=== PATIENT | female | born 1950 | race Caucasian/White ===

== ENCOUNTER 2024-11-16 13:53 | Outpatient (AMB) | payer MEDICARE, SELFPAY ==
--- OUTSIDE RECORDS SUMMARY | 2024-11-16 15:10 | XMS_ITS | Clinical Summary ---
Author Organization [facility] [address] [place] [address] Care Team Providers Care Claims Counsel Name Role Phone Unavailable Primary Care Provider Unavailabl e Medications valsartan (DIOVAN) 160 mg tablet Take 1 tablet (160 mg total) by mouth daily. 3 Active tolterodine LA (DETROL LA) 4 mg 24 hr capsule Take 1 capsule (4 mg total) by mouth daily. 3 Active sulfamethoxazo le-trimethopri m (BACTRIM DS;CO-TRIMOXAZ OLE DS) 800-160 mg per tablet Take 1 tablet by mouth every 12 (twelve) hours. 3 Active semaglutide (OZEMPIC) 0.25 mg or 0.5 mg (2 mg/3 mL) pen injector Inject 0.5 mg under the skin. 3 Active omeprazole (PRILOSEC) 40 mg capsule Take 1 capsule (40 mg total) by mouth daily. 3 Active nitrofurantoin (MACRODANTIN) 50 mg capsule Take 1 capsule (50 mg total) by mouth daily. 3 Active metoprolol tartrate (LOPRESSOR) 100 mg Immediate Release tablet Take 1 tablet (100 mg total) by mouth 2 (two) times daily. Active ipratropium (ATROVENT) 21 mcg (0.03 %) nasal spray USE 1 SPRAY INTO EACH NOSTRIL TWICE A DAY 3 Active insulin lispro (HUMALOG) 200 unit/mL (3 mL) pen Inject under the skin. Active HUMALOG KWIKPEN INSULIN 100 unit/mL pen INJECT 4-6 UNITS SUBCUTANEOUSLY 2-3 TIMES DAILY BEFORE MEALS 3 Active DENTAGEL 1.1 % dental gel APPLY PEA SIZED AMOUNT TO TOOTHBRUSH&BRUSH FOR 2 MINS.SPIT OUT.DO THIS ONCE DAILY*NOT COVERED* 3 Active folic acid 0.8 mg Cap folic acid Active insulin glargine (LANTUS) 100 unit/mL vial Inject 14-24 Units under the skin. Active fluconazole (DIFLUCAN) 150 mg tablet TAKE 1 TABLET BY MOUTH EVERY 72 HOURS 3 Active flash glucose (FREESTYLE ALE 2 SENSOR) sensor kit 1 each by Other route. 3 Active ferrous sulfate (FEOSOL) 325 mg (65 mg iron) tablet Take 1 tablet (325 mg total) by mouth daily with breakfast. Active cyanocobalamin 1000 MCG tablet Take 1 tablet (1,000 mcg total) by mouth daily. 3 Active cholecalcifero l, vitamin D3, 25 mcg (1,000 unit) capsule Take 1 tablet by mouth daily. 2 Active chlorthalidone (HYGROTEN) 25 mg tablet Take 1 tablet (25 mg total) by mouth daily. 3 Active atorvastatin (LIPITOR) 40 mg tablet Take 1 tablet (40 mg total) by mouth daily. Active acetaminophen (TYLENOL) 325 mg tablet Take 2 tablets (650 mg total) by mouth. Active Social History Tobacco Use Types Packs/Day Years Used Date Smoking Tobacco: Never Assessed Comments Unknown Sex and Gender Information Value Date Recorded Sex Assigned at Not on file Legal Sex Female 4:11 PM EDT Gender Identity Not on file Sexual Orientation Not on file Last Filed Vital Signs Vital Sign Reading Time Taken Comments Blood Pressure 118/80 11/04/2022 4:43 PM EDT Pulse 100 11/04/2022 4:43 PM EDT Temperature 36.5 C (97.7 F) 11/04/2022 4:43 PM EDT Respiratory Rate - - Oxygen Saturation 99% 11/04/2022 4:43 PM EDT Inhaled Oxygen Concentration - - Weight 104.3 kg (230 lb) 11/04/2022 4:43 PM EDT Height 167.6 cm (5' 6 ) 11/04/2022 4:43 PM EDT Body Mass Index 37.12 11/04/2022 4:43 PM EDT Plan of Treatment Health Maintenance Due Date Last Done Comments HIV screening 09/06/1963 Hepatitis C screening 1968 Prediabetes Surveillance 1968 Tetanus adult (Td q 10,TDAP once) 1970 Breast cancer screening 1990 Lipid disorder screening 1990 Colon cancer screening, Colonoscopy 09/06/1995 Diabetes screening 09/06/1995 Pneumococcal Vaccine (50+ years) (1 of 1 - PCV) 2000 Shingles vaccine (Shingrix) (1 of 2 - Shingrix (RZV) 2 Dose Standard Series) 2000 Osteoporosis screening (bone density) 09/06/2015 Covid-19 vaccine series (2023- season) 2023 06/20/2020, 05/23/2020 Influenza vaccine 11/29/2024 01/12/2021, 01/04/2020, 01/14/2019 RSV Immunization (1 - 1-dose 75+ series) 2025 Cervical cancer screening Discontinued Meningococcal Vaccine Aged Out No denise farooq eligible based on patient's age to complete this topic Insurance [employer] , [address] [id number] [employer]
--- OUTSIDE RECORDS SUMMARY | 2024-11-16 15:10 | XMS_ITS | Encounter Summary ---
Author Organization [facility], Address [address] [place] [address] Phone Care Team Providers Care Raw Juice Weigher Name Role Phone Ileana Hubbard MD Primary Care Provider + [phone] Encounter Details Date Type Department Care Team (Late st Contact Info) Description 07/16/2021 Documentation Only [facility] [place] [address] [place] [address] Claudine Delacruz [address] [place] [id number] Social History Tobacco Use Types Packs/Day Years Used Date Smoking Tobacco: Former Cigarettes Alcohol Use Standard Drinks/Week Comments Yes 0 (1 standard drink = 0.6 oz pure alcohol) Alcoholic Drinks/day: Occasional social drink Comments Unknown Sex and Gender Information Value Date Recorded Sex Assigned at Not on file Legal Sex Female 4:47 PM EST Gender Identity Not on file Sexual Orientation Not on file documented as of this encounter Plan of Treatment Upcoming Encounters Date Type Department Care Team (Late st Contact Info) Description 12/07/2024 1:40 PM EDT Office Visit [facility] [place] [address] [place] [address] Alfredito Davis MD [address] [place] [address] documented as of this encounter Visit Diagnoses Not on filedocumented in this encounter Care Teams Raw Juice Weigher Relationship Specialty Start Date End Date Ileana Hubbard MD [address] [place] [address] PCP - General Internal Medicine 05/12/20 documented as of this encounter
--- OUTSIDE RECORDS SUMMARY | 2024-11-16 15:10 | XMS_ITS | Clinical Summary ---
Author Organization [facility] Address [address] [place] [id number] Phone Care Team Providers Care Paring Machine Operator Name Role Phone Ileana Hubbard MD Primary Care Provide r Alfredito Davis MD Unavailable [phone] Allergies Active Allergy Reactions Criticality Noted Date Comments Gadolinium-Containing Contra st Media Unknown 09/24/2024 Iodine 07/08/2022 Redness, swelling Cephalexin 07/08/2022 Itching Hydrocodone-Acetaminophen 07/08/2022 itchiness Medications metoprolol tartrate (LOPRESSOR) 100 MG tablet Take 100 mg by mouth daily. Active omeprazole (PRILOSEC) 40 MG capsule Take 20 mg by mouth 2 (two) times a day. Active ferrous sulfate 325 mg (65 mg [place] iron) tablet Take 325 mg by mouth once a week. Active atorvastatin (LIPITOR) 40 MG tablet Take 40 mg by mouth daily. Active chlorthalidone (HYGROTON) 25 MG tablet Take 25 mg by mouth 3 (three) times a week. Active cholecalciferol (VITAMIN D3) 2,000 unit capsule Take 2,000 Units by mouth daily. Active ipratropium (ATROVENT) 21 mcg (0.03 %) nasal spray 1 spray by Nasal route 2 (two) times a day. Active valsartan (DIOVAN) 80 MG tablet Take 80 mg by mouth daily. Active insulin lispro U-200 (HUMALOG KWIKPEN) 200 unit/mL (3 mL) InPn subcutaneous penIndications:T ype 2 diabetes mellitus with stage 3 chronic kidney disease, with long-term current use of insulin, unspecified whether stage 3a or 3b CKD 3-6 units, subcutaneously, tid AC, plus 2 units to prime the pen 15 mL 2 11/12/19 24 Active Additional Information Patient taking differently: 4-9 Units 3 times daily, 3-6 units, subcutaneously, tid AC, plus 2 units to prime the pen, Reported on 09/24/2024 doxycycline monohydrate (ADOXA) 50 MG tablet Take 50 mg by mouth daily. Active terconazole (TERAZOL 7) 0.4 % vaginal cream Place 1 applicator vaginally nightly at bedtime. Active estradioL (ESTRACE) 0.01 % (0.1 mg/gram) vaginal cream Place 2 g vaginally 2 (two) times a week. Active estradioL (VAGIFEM) [address] 10 mcg vaginally 2 (two) times a week. Active cyanocobalamin, vitamin B-12, 1000 MCG tablet Take 1,000 mcg by mouth 3 (three) times a week. Active Bacillus coagulans-inulin 1 billion-250 cell-mg Cap Take 250 mg by mouth daily. Active HAIR, SKIN AND NAILS, BIOTIN, ORAL Take by mouth. Activ e FREESTYLE LITE METER meter kitIndications:T ype 2 diabetes mellitus with peripheral neuropathy To test blood glucose daily 1 each 06/25/19 25 Active FREESTYLE LITE Strp stripsIndication s:Type 2 diabetes mellitus with peripheral neuropathy 1 each by Miscellaneous route every morning. 100 strip 3 06/25/19 25 Active FREESTYLE SIENA 2 SENSOR kitIndications:T ype 2 diabetes mellitus with peripheral neuropathy,stage rigger current use of insulin USE INSTRUCTED. CHANGE EVERY 14 DAYS 2 kit 11 07/29/19 25 Active semaglutide (OZEMPIC) 1 mg/dose (4 mg/3 mL) subcutaneous injection penIndications:T ype 2 diabetes mellitus with peripheral neuropathy Inject 1 mg under the skin every 7 days. 9 mL 2 08/05/19 25 Active sertraline (ZOLOFT) 50 MG tablet Take 50 mg by mouth daily. Active sertraline (ZOLOFT) 25 MG tablet Take 25 mg by mouth daily. Active Active Problems Problem Noted Date Diagnosed Date Gastroesophageal reflux disease 07/31/2023 Bursitis of hip 07/31/2023 Anemia 07/31/2023 Anemia of chronic renal failure 07/31/2023 Irritable bowel syndrome 07/31/2023 Low vitamin D level 07/31/2023 Major depressive disorder 07/31/2023 Multiple pulmonary nodules 07/31/2023 Muscle pain 07/31/2023 Obstructive sleep apnea syndrome 07/31/2023 Osteopenia 07/31/2023 Restrictive lung disease 07/31/2023 Hypertension 04/09/2023 Mixed hyperlipidemia 04/09/2023 Long-term current use of inj ectable noninsulin antidiabetic medication 10/09/2022 Multinodular goiter 07/08/2022 Overview (07/08/2022): s/p FNA 2.5 cm TIRADS 3 nodule 2020 - benign, + subcm TIRADS 4 nodule(s); stable u/s 2021 Assessment & Plan (09/24/2024 3:17 PM EDT): Has been euthyroid. Will repeat u/s. Assessment & Plan (02/19/2024 12:34 PM EST): Euthyroid on labs earlier in the year. Will continue to monitor. Assessment & Plan (07/31/2023 12:30 PM EDT): Will continue to monitor. Assessment & Plan (01/08/2023 3:13 PM EDT): TSH normal @ 1.27 in October. Would repeat u/s in 1-2 yrs. Assessment & Plan (07/08/2022 3:18 PM EDT): Stable ultrasound last year. Await records to determine timing of follow up imaging. jail current use of insulin 07/08/2022 Type 2 diabetes mellitus with peripheral neuropa thy 07/08/2022 Overview (10/09/2022): Using the freestyle siena 2 sensors, getting supplies from local [facility] Assessment & Plan (09/24/2024 3:19 PM EDT): Control is good. Some low readings overnight, but on current regimen would not expect lows at that time, advised to double check w/ fingerstick as might be an issue w/ sensor. Discussed timing of insulin in relation to meals. Discussed strategies to deal with itching with siena. Continue to work on eating healthy & keeping active. To call or send in BG with problems with glycemic control. Up to date with [facility]. Following w/ podiatry. Assessment & Plan (05/27/2024 4:54 PM EST): Control is reasonable/good based upon the patient's freestyle siena 2 sensor download. No frequent or severe hypoglycemia. She had a couple spikes due to dietary intake. Overall, her glucose levels are doing well. Will maintain her regimen. Continue to work on eating healthy and being active. To call or message with any issues managing her glucose levels. Up to date with [facility]. Labs ordered today Assessment & Plan (02/19/2024 12:35 PM EST): Control is good. No pattern to BG readings to indicate needs adjustment in rx. Continue to work on eating healthy & keeping active. To call or send in BG with problems with glycemic control. Will do labs. To call if hasn't heard from us within 1-2 weeks. May consider increasing ozempic to 1 mg & lowering humalog to maintain control with more favorable weight profile. Up to date with [facility]. Following w/ podiatry. Assessment & Plan (07/31/2023 12:33 PM EDT): Control is good. Some low readings on siena overnight, suspect they are compression lows as should not go low overnight without lantus & often not taking prandial insulin w/ evening meal. Some days, she is spiking up PC lunch, some lows PC dinner. Advised she be mindful of what she is eating & its likely impact on glucose levels & would adjust mealtime insulin up/down accordingly. Discussed after steroid injection, would be careful with diet, hydrate well and can add 1-2 units with humalog when running high. Continue to work on eating healthy & keeping active. To call or send in BG with problems with glycemic control. Will do labs. To call if hasn't heard from us within 1-2 weeks. Up to date with [facility]. Following w/ podiatry. Assessment & Plan (04/15/2023 12:32 PM EST): Control is good based upon the patient's freestyle siena 2 sensor download. No frequent or severe hypoglycemia. She had a couple lows due to over estimating how much humalog she needed to cover what she was eating. She corrected and then was fine. Her glucose levels have been doing better overall since she has had her ozempic back. Will maintain her regimen. Continue to work on eating healthy and being active. To call or message with any issues managing her glucose levels. [facility] Labs ordered today Assessment & Plan (01/08/2023 3:16 PM EDT): Control is good. Frequent low readings on siena overnight, suspect they are compression lows as should not go low overnight without lantus & often not taking prandial insulin w/ evening meal. She is asymptomatic. Advised she double check with fingerstick prior to treating overnight lows. Spiking up PC breakfast. Advised to take insulin 15 min AC & include some protein w/ breakfast to help attenuate spike. Continue to work on eating healthy & keeping active. To call or send in BG with problems with glycemic control. Will do labs. To call if hasn't heard from us within 1-2 weeks. Up to date with [facility]. Foot & nail care good. Following w/ podiatry. Assessment & Plan (10/09/2022 2:05 PM EDT): Control is good based upon the patient's freestyle siena 2 sensor download. No frequent or severe hypoglycemia. She will have an occasional episode of hypoglycemia- likely due to too much insulin for what she ate, she will correct and then is fine. She has been off of basal insulin since a couple weeks after her last visit with Dr Cohen. Her glucose levels have remained stable with this adjustment, will continue off of basal insulin for now. Will continue with the humalog at meals and the 0.5 mg dose of ozempic. Continue to work on eating healthy and being active. To call or message with any issues managing her glucose levels. Up to date with [facility]. Sees podiatry. Labs ordered today Assessment & Plan (07/08/2022 3:22 PM EDT): Control good. No frequent or severe hypoglycemia, but back on basal insulin due to concerns @ lows overnight. Advised her to double check with fingerstick if CGM measuring low & asymptomatic, no reason for low BG. Tending to spike PC meals, particularly after first meal mid-late am. We will increase ozempic to a therapeutic dose & see if that helps with those readings & if doesn't tolerate or doesn't help, will increase insulin to prevent spike. Has been having some fecal incontinence, ? If due to ozempic vs other. Will see how does on higher dose & if worsens/persists, may try an alternative GLP1 agonist. Continue to work on eating healthy & keeping active, as able. To call or send in BG with problems with glycemic control. Up to date with [facility]. Will be seeing podiatry. To have labs done via renal/PCP w/ copy here. 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 Appears benign, do not think needs further imaging. Hormonal testing for hyperaldosteronism, pheo & hypercortisolism were all negative 2021. Assessment & Plan (07/31/2023 12:29 PM EDT): Noted on CT scan in 2020, stable in 2021. Appears benign, do not think needs further imaging. Hormonal testing for hyperaldosteronism, pheo & hypercortisolism were all negative 2021. Assessment & Plan (01/08/2023 3:10 PM EDT): Noted on CT scan in 2020, stable in 2021. Appears benign, do not think needs further imaging. Hormonal testing for hyperaldosteronism, pheo & hypercortisolism were all negative last year. Assessment & Plan (07/08/2022 3:18 PM EDT): Noted on CT scan in 2020, stable in 2021. Appears benign, do not think needs further imaging. Hormonal testing for hyperaldosteronism, pheo & hypercortisolism were all negative last year. Will continue to monitor. Type 2 diabetes mellitus wit h stage 3 chronic kidney disease, with long-term current use of insulin 03/31/1991 Overview (07/08/2022): ophtho - Dr. Donaldson Assessment & Plan (09/24/2024 3:19 PM EDT): Following w/ renal. BP well controlled. On ARB. Assessment & Plan (02/19/2024 12:34 PM EST): Following w/ renal. BP well controlled. On ARB. Assessment & Plan (11/12/2023 12:29 PM EDT): Control is good based upon the patient's freestyle siena 2 sensor download. No frequent or severe hypoglycemia. Will maintain her regimen. Continue to work on eating healthy and being active. To call or message with any issues managing her glucose levels. Up to date with [facility]. Labs ordered Assessment & Plan (07/31/2023 12:33 PM EDT): Following w/ renal. BP well controlled. On ARB. Assessment & Plan (01/08/2023 3:17 PM EDT): Following w/ renal. BP well controlled. On ARB. Assessment & Plan (07/08/2022 3:22 PM EDT): Seeing renal tomorrow. Encounters Date Type Department Care Team Description 10/04/2024 Orders Only Means [facility] [address] [place] [address] Payal Pavon [place] Type 2 diabetes mellitus with peripheral neuropathy 09/24/2024 12:00 PM EDT Office Visit [facility] [address] [place] [id number] Angela Cohen MD Type 2 diabetes mellitus with peripheral neuropathy (Primary Dx); Type 2 diabetes mellitus with stage 3 chronic kidney disease, with long-term current use of insulin, unspecified whether stage 3a or 3b CKD; Multinodular goiter; Long-term current use of injectable noninsulin antidiabetic medication; stage rigger current use of insulin 09/24/2024 Telephone [facility] [address] [place] [id number] Angela Cohen MD from Last 3 Months Social History Tobacco Use Types Packs/Day Years Used Date Smoking Tobacco: Former Cigarettes 1995 Passive Smoke Exposure: Past Smokeless Tobacco: Never Tobacco Cessation:Counseling Given: No Alcohol Use Standard Drinks/Week Comments Yes 0 (1 standard drink = 0.6 oz pur e alcohol) occasional Education Answer Date Recorded Are you interested in more education? Not on thaddeus e 07/27/2022 Are you concerned about learning? Not on file 07/27/2022 No 07/27/2022 No 07/27/2022 Digital Access Answer Date Recorded No 08/23/2022 No 08/23/2022 Reliable internet access at home? Not on file 08/23/2022 Device with a working camera? Not on file Comments Unknown Sex and Gender Information Value Date Recorded Sex Assigned at Not on file Legal Sex Female 2:47 PM EST Gender Identity Not on file Sexual Orientation Not on file Last Filed Vital Signs Vital Sign Reading Time Taken Comments Blood Pressure 130/65 09/24/2024 11:47 AM EDT Pulse 77 09/24/2024 11:47 AM EDT Temperature 36.7 C (98.1 F) 01/08/2023 11:52 AM EDT Respiratory Rate - - Oxygen Saturation 98% 09/24/2024 11:47 AM EDT Inhaled Oxygen Concentration - - Weight 90 kg (198 lb 6.4 oz) 09/24/2024 11:47 AM EDT Height 167.6 cm (5' 5.98 ) 05/21/2024 11:[address] Body Mass Index 32.04 05/21/2024 11:41 AM EST Plan of Treatment Upcoming Encounters Date Type Department Care Team (Late st Contact Info) Description 12/24/2024 11:00 AM EDT Office Visit [facility] [address] [place] [address] Petty Seay PA-C [address] [place] [phone] [email or web address] 06/23/2025 11:20 AM EDT Office Visit [facility] [address] [place] [address] Angela Cohen MD [address] [place] [id number] Health Maintenance Due Date Last Done Comments Adult Td,Tdap Booster 1950 DEPRESSION SCREENING 1962 HEPATITIS C SCREENING 1968 PNEUMOCOCCAL VACCINES (50+ years) (1 of 2 - PCV) 1969 MAMMOGRAM 1990 COLOGUARD 09/06/1995 COLONOSCOPY 09/06/1995 COLORECTAL CANCER SCREENING 09/06/1995 FIT TEST 09/06/1995 FOBT 09/06/1995 SIGMOIDOSCOPY 09/06/1995 VIRTUAL COLONOSCOPY 09/06/1995 ZOSTER VACCINES (1 of 2) 2000 RSV VACCINE (1 - Risk 60-74 years 1-dose series) 2010 OSTEOPOROSIS SCREENING INITIAL (ONE-TIME) 09/06/2015 DIABETIC EYE EXAM 07/08/2022 COVID-19 VACCINE ( season) 2023 HEMOGLOBIN A1C 11/18/2024 05/21/2024, 10/29, 07/31/2023, Additional history exists BLOOD PRESSURE 03/26/2025 09/24/2024 CREATININE LEVEL 10/01/2025 10/01/2024, , 02/24/2024, Additional history exists POTASSIUM LEVEL 10/01/2025 10/01/2024, 05/02, 02/24/2024, Additional history exists SMOKING STATUS SCREENING (Once After 26 Yrs) Completed 05/21/2024 HEPATITIS A VACCINES Aged Out No long er eligible based on patient's age to complete this topic HIB VACCINES Aged Out No longer eligi ble based on patient's age to complete this topic MENINGOCOCCAL VACCINES (ACWY) Aged Out No longer eligible based on patient's age to complete this topic MENINGOCOCCAL VACCINES (B) Aged Out N o longer eligible based on patient's age to complete this topic Medical Devices Not on file Procedures Procedure Name Priority Date/Time Associated Diagnosis Comments HEMOGLOBIN A1C Routine 10/01/2024 2:36 PM EDT Type 2 diabetes mellitus with peripheral neuropathy ASPARTATE AMINOTRANSFERASE (AST) Routine 10/01/2024 2:36 PM EDT Type 2 diabetes mellitus with peripheral neuropathy ALANINE AMINOTRANSFERASE (ALT) Routine 10/01/2024 2:36 PM EDT Type 2 diabetes mellitus with peripheral neuropathy BASIC METABOLIC PANEL Routine 10/01/2024 2:36 PM EDT Type 2 diabetes mellitus with peripheral neuropathy US THYROID GLAND Routine 09/24/2024 3:15 PM EDT Multinodular goiter HEMOGLOBIN A1C Routine 05/21/2024 12:31 PM EST Type 2 diabetes mellitus with peripheral neuropathy from Last 3 Months or Most Recently Relevant to Health Maintenance Results * Hemoglobin A1c (10/01/2024 2:36 PM EDT) Only the most recent of2 resultswithin the time period is included. Blood us Angela Cohen MD LAB BLOOD ORDERABLES F inal Result [address] [address] * Aspartate aminotransferase (AST) (10/01/2024 2:36 PM EDT) Blood Angela Cohen MD LAB BLOOD ORDERABLES F inal Result Performing Organization Address [facility] Co de Phone Number [address] [phone] * Alanine aminotransferase (ALT) (10/01/2024 2:36 PM EDT) Blood Angela Cohen MD LAB BLOOD ORDERABLES F inal Result Performing Organization Address [facility] Co de Phone Number [address] [phone] * Basic metabolic panel (10/01/2024 2:36 PM EDT) Blood Angela Cohen MD LAB BLOOD ORDERABLES F inal Result Performing Organization Address [facility] de Phone Number [address] [phone] from Last 3 Months or Most Recently Relevant to Health Maintenance Insurance [facility] MEDICARE HMO REPLACEMENT MEDICARE PART A & B [facility] MEDICARE HMO REPLACEMENT MEDICARE PART A & B Member Subscriber Plan / Payer (Ef fective 2015-Present) Name:Alexandria Rosenthal Member ID:[id number] Relation to Subscriber:Self Name:AriadnaMarco Antonioen Subscriber ID:[id number] Payer ID:[id number] Group ID:Not on file Type:Medicare Address: [facility] [employer] [facility] [address] [place] [address] [facility] MEDICARE HMO REPLACEMENT MEDICARE PART A & B MEDICARE HMO REPLACEMENT MEDICARE PART A & B MEDICARE HMO REPLACEMENT MEDICARE PART A & B MEDICARE PART A & B Care Teams Paring Machine Operator Relationship Specialty Start Date End Date Ileana Hubbard MD [address] [place] [address] PCP - General Internal Medicine 06/05/22 Alfredito Davis MD [address] [place] [address] [email or web address] Nephrology 08/11/23 Additional Source Comments The information contained in this document represents components of the legal health record. It is not the complete legal health record.[facility]
== END 2024-11-16 14:03 | disposition home or self-care (01) ==
LOC: HO.HMGAL 13:53
PROVIDERS: PCP Internal Medicine; Visit Provider Registered Nurse Emergency
DX: J30.89 Other allergic rhinitis (principal)
CPT/HCPCS: 95117; 95165

== ENCOUNTER 2025-01-12 13:50 | Outpatient (AMB) | payer MEDICARE, SELFPAY ==
--- OUTSIDE RECORDS SUMMARY | 2025-01-11 11:40 | XMS_ITS | Encounter Summary ---
Author Organization [facility] Address [address] [place] [address] Phone Care Team Providers Care Stenotypist Name Role Phone Ileana Hubbard MD Primary Care Provide r Alfredito Davis MD Unavailable [phone] Reason for Visit * Reason Comments Follow-up Getting tried after eating Want to about about the under skin cgm Encounter Details Date Type Department Care Team ([facility] Contact Info) Description 01/11/2025 11:40 AM EDT Office Visit [facility] [address] [place] [address] Petty Seay PA-C [address] [place] [address] [email or web address] Type 2 diabetes mellitus with peripheral neuropathy (Primary Dx) Social History Tobacco Use Types Packs/Day Years Used Date Smoking Tobacco: Former Cigarettes 966 - 1995 Passive Smoke Exposure: Past Smokeless Tobacco: Never Alcohol Use Standard Drinks/Week Comments Yes 0 [...] on file documented as of this encounter Last Filed Vital Signs Vital Sign Reading Time Taken Comments Blood Pressure 120/66 01/11/2025 11:50 AM EDT Pulse 74 01/11/2025 11:50 AM EDT Temperature - - Respiratory Rate - - Oxygen Saturation 98% 01/11/2025 11:50 AM EDT Inhaled Oxygen Concentration - - Weight 89.8 kg (198 lb) 01/11/2025 11:50 AM EDT Height 167.6 cm (5' 5.98 ) 01/11/2025 11:50 AM E DT Body Mass Index 31.97 01/11/2025 11:50 AM EDT documented in this encounter Progress Notes * Petty Seay PA-C - 01/11/2025 11:40 AM EDT Subjective: Patient ID: [email or web address] Rosenthal is a 74 y.o. female. In the interval since the last visit, no changes in health Hemoglobin A1C: Reviewed last A1C from 10/22 was 6.5%, will order labs. Blood glucose monitoring: using the freestyle siena 2 sensor, average reading is 124, time in range is 91%, time high is 8%, time low is 1%. Hypoglycemia: she will have an occasional low, she will correct and is fine. Problems with medications: she is having a lump at the canula insertion site for the sensor. Recent weight changes: none. Diet : 2-3 meals a day, occasional snacks, healthy choices, portion control is good. Activity: going to water aerobics once a week. Optho: up to date. Foot: no issues, seeing podiatry. Injection/pump site & timing: rotating on thighs and abdomen for ozempic and insulin and arms for the sensors, changing the sensor every 14 days, taking the ozempic on Sundays, taking the insulin right before to 15 minutes before eating, no lipohypertrophy or bruising Current Outpatient Medications Ordered in Epic: atorvastatin (LIPITOR) 40 MG tablet, Take 40 mg by mouth daily. Bacillus coagulans-inulin 1 billion-250 cell-mg Cap, Take 250 mg by mouth daily. cholecalciferol (VITAMIN D3) 2,000 unit capsule, Take 2,000 Units by mouth daily. cyanocobalamin, vitamin B-12, 1000 MCG tablet, Take 1,000 mcg by mouth 3 (three) times a week. estradioL (ESTRACE) 0.01 % (0.1 mg/gram) vaginal cream, Place 2 g vaginally 2 (two) times a week. estradioL (VAGIFEM) 10 mcg Tab, Place 10 mcg vaginally 2 (two) times a week. ferrous sulfate 325 mg (65 mg ruby iron) tablet, Take 325 mg by mouth once a week. FREESTYLE SIENA 2 SENSOR kit, USE INSTRUCTED. CHANGE EVERY 14 DAYS FREESTYLE LITE METER meter kit, To test blood glucose daily FREESTYLE LITE Strp strips, 1 each by Miscellaneous route every morning. HAIR, SKIN AND NAILS, BIOTIN, ORAL, Take by mouth. insulin lispro U-200 (HUMALOG KWIKPEN INSULIN) 200 unit/mL (3 mL) InPn subcutaneous pen, Inject 4-9Units under the skin 3 (three) times a day. plus 2 units to prime the pen with each dose; or as directed ipratropium (ATROVENT) 21 mcg (0.03 %) nasal spray, 1 spray by Nasal route 2 (two) times a day. metoprolol tartrate (LOPRESSOR) 100 MG tablet, Take 100 mg by mouth daily. omeprazole (PRILOSEC) 40 MG capsule, Take 20 mg by mouth 2 (two) times a day. semaglutide (OZEMPIC) 1 mg/dose (4 mg/3 mL) subcutaneous injection pen, Inject 1 mg under the skin every 7 days. sertraline (ZOLOFT) 100 MG tablet, Take 100 mg by mouth daily. terconazole (TERAZOL 7) 0.4 % vaginal cream, Place 1 applicator vaginally nightly at bedtime. valsartan (DIOVAN) 80 MG tablet, Take 80 mg by mouth daily. chlorthalidone (HYGROTON) 25 MG tablet, Take 25 mg by mouth 3 (three) times a week. doxycycline monohydrate (ADOXA) 50 MG tablet, Take 50 mg by mouth daily. sertraline (ZOLOFT) 25 MG tablet, Take 25 mg by mouth daily. Review of Systems Constitutional: Positive for fatigue (moreso after breakfast). Negative for unexpected weight change. Eyes: Positive for wears glasses. Negative for unexpected vision change. Respiratory: Negative for cough and shortness of breath. Cardiovascular: Positive for leg swelling (slight in the ankles). Negative for chest pain. Gastrointestinal: Negative for constipation and diarrhea. Genitourinary: Positive for nocturia (1-2x). Neurological: Positive for numbness (tingling in the toes). Psychiatric/Behavioral: Negative for sleep disturbance. Musculoskeletal: Positive for joint pain (the left knee). No leg cramps Objective: Physical Exam Vitals reviewed. Constitutional: Appearance: Normal appearance. Skin: General: Skin is warm. Neurological: Mental Status: She is alert and oriented to person, place, and time. Psychiatric: Mood and Affect: Mood normal. Behavior: Behavior normal. Assessment/Plan: Problem List Items Addressed This Visit Type 2 diabetes mellitus with peripheral neuropathy - Primary Control is good based upon the patient's freestyle siena 2 sensor download. No frequent or severe hypoglycemia. She is having irritation at the canula insertion site for her sensors. Discussed alternative sensor sites to try to see if she has the same issue. Will maintain her medication regimen. Continue to work on eating healthy and being active. To call or message with any issues managing her glucose levels. Up to date with ophtho. Labs ordered today Relevant Medications semaglutide (OZEMPIC) 1 mg/dose (4 mg/3 mL) subcutaneous injection pen Other Relevant Orders Hemoglobin A1c Alanine aminotransferase (ALT) Aspartate aminotransferase (AST) Basic metabolic panel documented in this encounter Miscellaneous Notes * Assessment & Plan Note - Petty Seay PA-C - 01/11/2025 12:29 PM EDTAssociated Problem(s): Type 2 diabetes mellitus with peripheral neuropathy Control is good based upon the patient's freestyle siena 2 sensor download. No frequent or severe hypoglycemia. She is having irritation at the canula insertion site for her sensors. Discussed alternative sensor sites to try to see if she has the same issue. Will maintain her medication regimen. Continue to work on eating healthy and being active. To call or message with any issues managing her glucose levels. Up to date with ophtho. Labs ordered today documented in this encounter Plan of Treatment Upcoming Encounters Date Type Department Care Team (Late st Contact Info) Description 06/23/2025 11:20 AM EDT Office Visit [facility] [address] [place] [address] Angela Cohen MD [address] [place] [phone] 12/12/2025 11:00 AM EDT Office Visit [facility] Endocrinology [address] [phone] Petty Seay PA-C [address] [place] [phone] documented as of this encounter Results * (ABNORMAL) Basic metabolic panel (01/11/2025 12:25 PM EDT) SODIUM 139 133 - 146 mmol/L [facility] CHLORIDE 103 96 - 108 mmol/L [facility] POTASSIUM 4.3 3.3 - 5.1 mmol/L [facility] CO2 27 21 - 35 mmol/L [facility] BUN 14 6 - 19 mg/dL [facility] CREATININE 1.00 0.5 - 1.5 mg/dL [facility] GLUCOSE 141(H) 70 - 99 mg/dL [facility] CALCIUM 9.4 8.4 - 10.3 mg/dL [facility] EGFR 59(L) >59 mL/min/1.7 3m2 [facility] Comment:Estimated glomerular filtration rate calculated using the CKD-EPI refit equation. ANION GAP 13 10 - 20 mmol/L [facility] Blood 01/11/2025 12:2 5 PM EDT 01/11/2025 12:31 PM EDT Petty Seay PA-C LAB BLOOD ORDERABL ES Final Result [address] [address] * Aspartate aminotransferase (AST) (01/11/2025 12:25 PM EDT) AST 33 0 - 37 U/L [facility] Blood 01/11/2025 12:2 5 PM EDT 01/11/2025 12:31 PM EDT Petty Seay PA-C LAB BLOOD ORDERABL ES Final Result Performing Organization Address [facility] Co de Phone Number [address] [address] * Alanine aminotransferase (ALT) (01/11/2025 12:25 PM EDT) ALT 20 0 - 40 U/L [facility] Blood 01/11/2025 12:2 5 PM EDT 01/11/2025 12:31 PM EDT Petty KELLOGG-C LAB BLOOD ORDERABL ES Final Result Performing Organization Address [facility]/ZIP Co de Phone Number [address] [address] * (ABNORMAL) Hemoglobin A1c (01/11/2025 12:25 PM EDT) HEMOGLOBIN A1C 6.3(H) 4.3 - 5.8 % [facility] Blood 01/11/2025 12:2 5 PM EDT 01/11/2025 12:31 PM EDT Petty Seay PA-C LAB BLOOD ORDERABL ES Final Result Performing Organization Address City/[facility]/ZIP Co de Phone Number [address] [phone] documented in this encounter Visit Diagnoses Diagnosis Type 2 diabetes mellitus with peripheral neuropathy- Primary documented in this encounter Care Teams Stenotypist Relationship Specialty Start Date End Date Ileana Hubbard MD [address] [address] PCP - General Internal Medicine 06/05/22 Alfredito Davis MD [address] [place] [address] [place] [address] [email or web address] Nephrology 08/11/23 documented as of this encounter Additional Source Comments The information contained in this document represents components of the legal health record. It is not the complete legal health record.[facility]
--- OUTSIDE RECORDS SUMMARY | 2025-01-11 12:18 | XMS_ITS | Encounter Summary ---
Author Organization [facility] Address [address] [place] [address] [place] [address] Phone Care Team Providers Care Orthodontic Laboratory Technician Name Role Phone Ileana Hubbard MD Primary Care Provide r Alfredito Davis MD Unavailable [phone] Encounter Details Date Type Department Care Team (Late st Contact Info) Description 01/11/2025 12:18 PM EDT - 01/11/2025 11:59 PM EDT Hospital Encounter [facility] [address] [place] [address] Petty Seay PA-C [address] [place] [address] [email or web address] [email or web address] Disposition: Home or Self Care Social History Tobacco Use Types Packs/Day Years [...] on file documented as of this encounter Medications at Time of Discharge atorvastatin (LIPITOR) 40 MG tablet Take 40 mg by mouth daily. Bacillus coagulans-inulin 1 billion-250 cell-mg Cap Take 250 mg by mouth daily. cholecalciferol (VITAMIN D3) 2,000 unit capsule Take 2,000 Units by mouth daily. cyanocobalamin, vitamin B-12, 1000 MCG tablet Take 1,000 mcg by mouth 3 (three) times a week. estradioL (ESTRACE) 0.01 % (0.1 mg/gram) vaginal cream Place 2 g vaginally 2 (two) times a week. estradioL (VAGIFEM) [address] 10 mcg vaginally 2 (two) times a week. ferrous sulfate 325 mg (65 mg [place] iron) tablet Take 325 mg by mouth once a week. 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 CHANGE EVERY 14 DAYS 2 kit 11 07/28/2024 FREESTYLE LITE METER meter kitIndications:Ty pe 2 diabetes mellitus with peripheral neuropathy To test blood glucose daily 1 each 06/24/2024 FREESTYLE LITE Strp stripsIndications :Type 2 diabetes mellitus with peripheral neuropathy 1 each by Miscellaneous route every morning. 100 strip 3 06/24/2024 HAIR, SKIN AND NAILS, BIOTIN, ORAL Take by mouth. insulin lispro U-200 (HUMALOG KWIKPEN INSULIN) 200 unit/mL (3 mL) InPn subcutaneous penIndications:Ty pe 2 diabetes mellitus with stage 3 chronic kidney disease, with long-term current use of insulin, unspecified whether stage 3a or 3b CKD Inject 4-9 Units under the skin 3 (three) times a day. plus 2 units to prime the pen with each dose; or as directed 15 mL 3 11/22/2024 ipratropium (ATROVENT) 21 mcg (0.03 %) nasal spray 1 spray by Nasal route 2 (two) times a day. metoprolol tartrate (LOPRESSOR) 100 MG tablet Take 100 mg by mouth daily. omeprazole (PRILOSEC) 40 MG capsule Take 20 mg by mouth 2 (two) times a day. semaglutide (OZEMPIC) 1 mg/dose (4 mg/3 mL) subcutaneous injection penIndications:Ty pe 2 diabetes mellitus with peripheral neuropathy Inject 1 mg under the skin every 7 days. 9 mL 2 01/11/2025 sertraline (ZOLOFT) 100 MG tablet Take 100 mg by mouth daily. terconazole (TERAZOL 7) 0.4 % vaginal cream Place 1 applicator vaginally nightly at bedtime. valsartan (DIOVAN) 80 MG tablet Take 80 mg by mouth daily. documented as of this encounter Plan of Treatment Upcoming Encounters Date Type Department Care Team (Late st Contact Info) Description 06/23/2025 11:20 AM EDT Office Visit [facility] [address] [place] [address] [place] [address] Angela Cohen MD [address] [place] [phone] 12/12/2025 11:00 AM EDT Office Visit [facility] Endocrinology [address] [phone] Petty Seay PA-C [address] [place] [phone] [email or web address] documented as of this encounter Procedures Procedure Name Priority Date/Time Associated Diagnosis Comments ALANINE AMINOTRANSFERASE (ALT) Routine 01/11/2025 12:25 PM EDT Type 2 diabetes mellitus with peripheral neuropathy ASPARTATE AMINOTRANSFERASE (AST) Routine 01/11/2025 12:25 PM EDT Type 2 diabetes mellitus with peripheral neuropathy HEMOGLOBIN A1C Routine 01/11/2025 12:25 PM EDT Type 2 diabetes mellitus with peripheral neuropathy BASIC METABOLIC PANEL Routine 01/11/2025 12:25 PM EDT Type 2 diabetes mellitus with peripheral neuropathy documented in this encounter Results * (ABNORMAL) Hemoglobin A1c (01/11/2025 12:25 PM EDT) HEMOGLOBIN A1C 6.3(H) 4.3 - 5.8 % [facility] Blood 01/11/2025 12:2 5 PM EDT 01/11/2025 12:31 PM EDT Petty KELLOGG-C LAB BLOOD ORDERABL ES Final Result [address] [address] * Alanine aminotransferase (ALT) (01/11/2025 12:25 PM EDT) ALT 20 0 - 40 U/L [facility] Blood 01/11/2025 12:2 5 PM EDT 01/11/2025 12:31 PM EDT Petty KELLOGG-C LAB BLOOD ORDERABL ES Final Result Performing Organization Address [facility] Co de Phone Number [address] [address] * Aspartate aminotransferase (AST) (01/11/2025 12:25 PM EDT) AST 33 0 - 37 U/L [facility] Blood 01/11/2025 12:2 5 PM EDT 01/11/2025 12:31 PM EDT Petty Cindy KELLOGG-C LAB BLOOD ORDERABL ES Final Result Performing Organization Address [facility] Co de Phone Number [address] [address] * (ABNORMAL) Basic metabolic panel (01/11/2025 12:25 PM EDT) SODIUM 139 133 - 146 mmol/L [facility] CHLORIDE 103 96 - 108 mmol/L [facility] POTASSIUM 4.3 3.3 - 5.1 mmol/L [facility] CO2 27 21 - 35 mmol/L [facility] BUN 14 6 - 19 mg/dL [facility] CREATININE 1.00 0.5 - 1.5 mg/dL [facility] GLUCOSE 141(H) 70 - 99 mg/dL [facility] CALCIUM 9.4 8.4 - 10.3 mg/dL [facility] EGFR 59(L) >59 mL/min/1.7 3m2 [facility] Comment:Estimated glomerular filtration rate calculated using the CKD-EPI refit equation. ANION GAP 13 10 - 20 mmol/L [facility] Blood 01/11/2025 12:2 5 PM EDT 01/11/2025 12:31 PM EDT us Petty Seay PA-C LAB BLOOD ORDERABL ES Final Result Performing Organization Address City/State/[facility] Co de Phone Number [facility] [address] [place] [address] documented in this encounter Visit Diagnoses Diagnosis Type 2 diabetes mellitus with peripheral neuropathy documented in this encounter Care Teams Orthodontic Laboratory Technician Relationship Specialty Start Date End Date Ileana Hubbard MD [address] [address] PCP - General Internal Medicine 06/05/22 Alfredito Davis MD [address] [place] [address] [place] [address] [email or web address] Nephrology 08/11/23 documented as of this encounter Additional Source Comments The information contained in this document represents components of the legal health record. It is not the complete legal health record.[facility]
--- OUTSIDE RECORDS SUMMARY | 2025-01-12 17:36 | XMS_ITS | Clinical Summary ---
Author Organization [facility] Address [address] [place] [id number] Phone Care Team Providers Care Aitchbone Breaker Name Role Phone Ileana Hubbard MD Primary Care Provide r Alfredito Davis MD Unavailable [phone] Allergies Active Allergy Reactions Criticality Noted Date Comments Gadolinium-Containing Contra st Media Unknown 09/24/2024 Iodine 07/08/2022 Redness, swelling Cephalexin 07/08/2022 Itching Hydrocodone-Acetaminophen 07/08/2022 itchiness Medications metoprolol tartrate (LOPRESSOR) 100 MG tablet Take 100 mg by mouth daily. Active omeprazole (PRILOSEC) 40 MG capsule Take 20 mg by mouth 2 (two) times a day. Active ferrous sulfate 325 mg (65 mg [place] iron) tablet Take 325 mg by mouth once a week. Active atorvastatin (LIPITOR) 40 MG tablet Take 40 mg by mouth daily. Active cholecalciferol (VITAMIN D3) 2,000 unit capsule Take 2,000 Units by mouth daily. Active ipratropium (ATROVENT) 21 mcg (0.03 %) nasal spray 1 spray by Nasal route 2 (two) times a day. Active valsartan (DIOVAN) 80 MG tablet Take 80 mg by mouth daily. Active terconazole (TERAZOL [...] 3 (three) times a week. Active Bacillus coagulans-inuli n 1 billion-250 cell-mg Cap Take 250 mg by mouth daily. Active HAIR, SKIN AND NAILS, BIOTIN, ORAL Take by mouth. Activ e FREESTYLE LITE METER meter kitIndications: Type 2 diabetes mellitus with peripheral neuropathy To test blood glucose daily 1 each 025 Active FREESTYLE LITE Strp stripsIndicatio ns:Type 2 diabetes mellitus with peripheral neuropathy 1 each by Miscellaneous route every morning. 100 strip 3 025 Active FREESTYLE SIENA 2 SENSOR kitIndications: Type 2 diabetes mellitus with peripheral neuropathy,supervisor intermediates current use of insulin USE INSTRUCTED. CHANGE EVERY 14 DAYS 2 kit 11 025 Active sertraline (ZOLOFT) 100 MG tablet Take 100 mg by mouth daily. Active insulin lispro U-200 (HUMALOG KWIKPEN INSULIN) 200 unit/mL (3 mL) InPn subcutaneous penIndications: Type 2 diabetes mellitus with stage 3 chronic kidney disease, with long-term current use of insulin, unspecified whether stage 3a or 3b CKD Inject 4-9 Units under the skin 3 (three) times a day. plus 2 units to prime the pen with each dose; or as directed 15 mL 3 025 Active semaglutide (OZEMPIC) 1 mg/dose (4 mg/3 mL) subcutaneous injection penIndications: Type 2 diabetes mellitus with peripheral neuropathy Inject 1 mg under the skin every 7 days. 9 mL 2 025 Active chlorthalidone (HYGROTON) 25 MG tablet Take 25 mg by mouth 3 (three) times a week. 2024 Discontinued doxycycline monohydrate (ADOXA) 50 MG tablet Take 50 mg by mouth daily. 2024 Discontinued semaglutide (OZEMPIC) 1 mg/dose (4 mg/3 mL) subcutaneous injection penIndications: Type 2 diabetes mellitus with peripheral neuropathy Inject 1 mg under the skin every 7 days. 9 mL 2 025 2024 Discontinued(R pola) sertraline (ZOLOFT) 25 MG tablet Take 25 mg by mouth daily. 2024 Discontinued Active Problems Problem Noted Date Diagnosed Date [...] to determine timing of follow up imaging. supervisor intermediates current use of insulin 07/08/2022 Type 2 diabetes mellitus with peripheral neuropa thy 07/08/2022 Overview (10/09/2022): Using the [employer] siena 2 sensors, getting supplies from local [facility] Assessment & Plan (01/11/2025 12:29 PM EDT): Control is good based [...] to date with ophtho. Labs ordered today Assessment & Plan (09/24/2024 3:19 PM EDT): [...] with glycemic control. Up to date with ophtho. Following w/ podiatry. Assessment & Plan (05/27/2024 [...] to date with ophtho. Labs ordered today Assessment & Plan (02/19/2024 [...] her glucose levels. Up to date with [facility]. Labs ordered today Assessment & Plan (01/08/2023 [...] her glucose levels. Up to date with [facility]. Sees podiatry. Labs ordered today Assessment & [...] with glycemic control. Up to date with [facility]. Will be seeing podiatry. To have labs done via renal/PCP w/ copy here. 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); measured [address] scan 06/2021 [...] current use of insulin 03/31/1991 Overview (07/08/2022): eva Donaldson Assessment & Plan (09/24/2024 3:19 PM [...] Encounters Date Type Department Care Team Description 01/11/2025 12:18 PM EDT - 01/11/2025 11:59 PM EDT Hospital Encounter [facility] [address] [place] [address] Petty Seay PA-C Discharge Disposition: Home or Self Care 01/11/2025 11:40 AM EDT Office Visit [facility] [address] [place] [address] [place] [address] Petty Seay PA-C Type 2 diabetes mellitus with peripheral neuropathy (Primary Dx) 11/20/2024 Refill [facility] [address] [place] [address] Petty Seay PA-C Medication Refill from Last 3 Months Social History Tobacco Use Types Packs/Day Years Used Date Smoking Tobacco: Former Cigarettes 30 1 966 - 1995 Passive Smoke Exposure: Past [...] Pulse 74 01/11/2025 11:50 AM EDT Temperature 36.7 C (98.1 F) 01/08/2023 11:52 AM EDT Respiratory Rate - - Oxygen Saturation 98% 01/11/2025 11:50 AM EDT Inhaled Oxygen Concentration - - Weight 89.8 kg (198 lb) 01/11/2025 11:50 AM EDT Height 167.6 cm (5' 5.98 ) 01/11/2025 11:50 AM E DT Body Mass Index 31.97 01/11/2025 11:50 AM EDT Plan of Treatment Upcoming Encounters Date Type Department Care Team (Late st Contact Info) Description 06/23/2025 11:20 AM EDT Office Visit [facility] [address] [place] [id number] Angela Cohen MD [address] [place] [address] 12/12/2025 11:00 AM EDT Office Visit [facility] [address] [phone] Petty Seay PA-C [address] [place] [id number] [email or web address] Health Maintenance Due Date Last Done Comments Adult Td,Tdap Booster 1950 DEPRESSION SCREENING 1962 HEPATITIS C SCREENING 1968 PNEUMOCOCCAL VACCINES (50+ years) (1 of 2 - PCV) 1969 MAMMOGRAM 1990 COLOGUARD 09/06/1995 COLONOSCOPY 09/06/1995 COLORECTAL CANCER SCREENING 09/06/1995 FIT TEST 09/06/1995 FOBT 09/06/1995 SIGMOIDOSCOPY 09/06/1995 VIRTUAL COLONOSCOPY 09/06/1995 RSV VACCINE (1 - Risk 50-74 years 1-dose series) 2000 ZOSTER VACCINES (1 of 2) 2000 OSTEOPOROSIS SCREENING INITIAL (ONE-TIME) 09/06/2015 DIABETIC EYE EXAM 07/08/2022 INFLUENZA VACCINE (#1) 2024 , 01/04/2020, 01/14/2019 COVID-19 VACCINE (2024- season) 2024 BLOOD PRESSURE 07/12/2025 01/11/2025 HEMOGLOBIN A1C 07/12/2025 01/11/2025, 02/03/2024, 11/12/2023, Additional history exists CREATININE LEVEL 01/11/2026 01/11/2025, 06/2024, 05/21/2024, Additional history exists POTASSIUM LEVEL 01/11/2026 01/11/2025, 07/0 06/2024, 05/21/2024, Additional history exists SMOKING STATUS SCREENING (Once [...] Date/Time Associated Diagnosis Comments HEMOGLOBIN A1C Routine 01/11/2025 12:25 PM EDT Type 2 diabetes mellitus with peripheral neuropathy ALANINE AMINOTRANSFERASE (ALT) Routine 01/11/2025 12:25 PM EDT Type 2 diabetes mellitus with peripheral neuropathy ASPARTATE AMINOTRANSFERASE (AST) Routine 01/11/2025 12:25 PM EDT Type 2 diabetes mellitus with peripheral neuropathy BASIC METABOLIC PANEL Routine 01/11/2025 12:25 PM EDT Type 2 diabetes mellitus with peripheral neuropathy from Last 3 Months Results * Alanine aminotransferase (ALT) (01/11/2025 12:25 PM EDT) ALT 20 0 - 40 U/L [facility] Blood 01/11/2025 12:2 5 PM EDT 01/11/2025 12:31 PM EDT Petty KELLOGG-Vitaliy LAB BLOOD ORDERABL ES Final Result Performing Organization Address City/[facility]/ZIP Co de Phone Number [address] [address] * Aspartate aminotransferase (AST) (01/11/2025 12:25 PM EDT) AST 33 0 - 37 U/L [facility] Blood 01/11/2025 12:2 5 PM EDT 01/11/2025 12:31 PM EDT Petty KELLOGG-C LAB BLOOD ORDERABL ES Final Result Performing Organization Address [facility] Co de Phone Number [address] [address] * (ABNORMAL) Hemoglobin A1c (01/11/2025 12:25 PM EDT) HEMOGLOBIN A1C 6.3(H) 4.3 - 5.8 % [facility] Blood 01/11/2025 12:2 5 PM EDT 01/11/2025 12:31 PM EDT Petty KELLOGG-C LAB BLOOD ORDERABL ES Final Result Performing Organization Address [facility] Co de Phone Number [address] [address] * (ABNORMAL) Basic metabolic panel (01/11/2025 12:25 PM EDT) SODIUM 139 133 - 146 mmol/L [facility] CHLORIDE 103 96 - 108 mmol/L [facility] POTASSIUM 4.3 3.3 - 5.1 mmol/L [facility] CO2 27 21 - 35 mmol/L [facility] BUN 14 6 - 19 mg/dL [facility] CREATININE 1.00 0.5 - 1.5 mg/dL [facility] GLUCOSE 141(H) 70 - 99 mg/dL [facility] CALCIUM 9.4 8.4 - 10.3 mg/dL [facility] EGFR 59(L) >59 mL/min/1.7 3m2 [facility] Comment:Estimated glomerular filtration rate calculated using the CKD-EPI refit equation. ANION GAP 13 10 - 20 mmol/L [facility] Blood 01/11/2025 12:2 5 PM EDT 01/11/2025 12:31 PM EDT Petty Seay PA-C LAB BLOOD ORDERABL ES Final Result [facility] [address] [place] [address] from Last 3 Months Insurance [facility] MEDIC[facility] HMO REPLACEMENT MEDICARE PART A & B MEDICARE HMO REPLACEMENT MEDICARE PART A & B MEDICARE HMO REPLACEMENT MEDICARE PART A & B MEDICARE HMO REPLACEMENT MEDICARE PART A & B MEDICARE HMO REPLACEMENT MEDICARE PART A & B [facility] MEDIC[facility] HMO REPLACEMENT MEDICARE PART A & B Care Teams Aitchbone Breaker Relationship Specialty Start Date End Date Ileana Hubbard MD [address] [id number] PCP - General Internal Medicine 06/05/22 Alfredito Davis MD [address] [place] [address], [place] [address] Nephrology 08/11/23 Additional Source Comments The information contained in this document represents components of the legal health record. It is not the complete legal health record.[facility]
== END 2025-01-12 13:51 | disposition home or self-care (01) ==
LOC: HO.HMGAL 13:50
PROVIDERS: PCP Internal Medicine; Visit Provider Registered Nurse Emergency
DX: J30.89 Other allergic rhinitis (principal)
CPT/HCPCS: 95117; 95165

== ENCOUNTER 2025-03-14 11:15 | Outpatient (AMB) | payer MEDICARE, SELFPAY | END 2025-03-14 11:15 | disposition home or self-care (01) | LOC: HO.HMGAL 11:15 | PROVIDERS: PCP Internal Medicine; Visit Provider Registered Nurse Emergency | DX: J30.89 Other allergic rhinitis (principal) | CPT/HCPCS: 95117; 95165 ==